=== PATIENT | male | born 1940 | race Caucasian/White ===

== ENCOUNTER 2024-04-30 05:53 | Inpatient (IN) | payer MEDICARE, OTHER, SELFPAY ==
[2024-04-25 09:13] VITALS: BMI 31.3
[2024-04-25 10:03] LABS: INR 0.93; PT 12.5 Sec (11.4-14.6)
[2024-04-25 10:04] LABS: % Basophils 0.6 % (0-2); % Immature Granulocytes 0.4 % (0-0.5); % Lymphocytes 15.5 % (20.5-51.1); % Neutrophils 71.5 % (42.2-75.2); APTT 29.1 Sec (23.4-35.0); Absolute Basophils 0.1 10^3/uL (0-0.2); Absolute Eosinophils 0.4 10^3/uL (0-0.7); Absolute Lymphocytes 1.5 10^3/uL (1.2-3.4); Absolute Monocytes 0.8 10^3/uL (0.1-0.6); Absolute Neutrophils 6.7 10^3/uL (1.4-6.5); Hematocrit 40.6 % (39.0-52.0); Hemoglobin 13.9 g/dL (13.0-18.0); Mean Corp Hgb Conc. 34.2 g/dL (33.0-37.0); Mean Corpuscular Hgb 29.7 pg (27.0-31.0); Mean Corpuscular Volume 86.8 fL (80.0-94.0); Mean Platelet Volume 10.4 fL (7.4-10.4); Nucleated Red Blood Cells % 0 % (-); Platelet Count 218 10^3/uL (130-400); Red Blood Cell Count 4.68 10^6/uL (4.70-6.10); Red Cell Dist. Width 12.6 % (11.5-14.5); White Blood Cell Count 9.4 10^3/uL (4.8-10.8)
[2024-04-25 11:58] LABS: Blood Urea Nitrogen 17 mg/dl (9-20); Calcium 9.7 mg/dl (8.4-10.2); Carbon Dioxide 27 mmol/L (22-30); Chloride 98 mmol/L (98-107); Estimated Creatinine Clearance 63 ml/min; Glucose 165 mg/dl (70-99); Potassium 5.4 mmol/L (3.5-5.1); Sodium 135 mmol/L (135-145); eGFR > 60.00
--- NOTE | 2024-04-27 07:52 | PTCARENOTE ---
Dianne at MD office notified of Lab results.
[2024-04-30] VITALS (12 sets, daily range): BP systolic 138–168; BP diastolic 57–106
[2024-04-30 07:01] LABS: Glucose - Point of Care 175 mg/dl (70-99)
[2024-04-30] MEDS: PERIDEX 0.12% ORAL RINSE 15 ML PO (07:03)
[2024-04-30] MEDS: NSS 500 IV (07:03)
[2024-04-30] MEDS: BACTROBAN NASAL 1 GRAM NASAL (07:03)
--- NOTE | 2024-04-30 07:43 | W.SUR.PREOP ---
Pre-Operative Surgical Note
-
I have examined this patient prior to the performance of the scheduled procedure.
The patient's condition is unchanged from the time of the current History and
Physical and the patient is able to undergo the scheduled procedure.
[2024-04-30 09:03] LABS: ACT-LR - POC 306 Seconds (116-155)
[2024-04-30 09:46] LABS: ACT-LR - POC 240 Seconds (116-155)
--- NOTE | 2024-04-30 10:31 | OR.RPT ---
Operative Report
Operative Report
Date of Operation: 04/30/2024
Pre Op Diagnosis: High-grade asymptomatic right carotid artery stenosis
Post Op Diagnosis: High-grade asymptomatic right carotid artery stenosis
Procedure: RIGHT carotid endarterectomy with patch angioplasty using bovine pericardium
Surgeon: Luis F Wang III, MD
Line Fixer: Christiano Hernandez MD PhD PGY-6
Anesthesia: General
Complications: None
History and Indications for Procedure: 83-year-old male with asymptomatic high-grade right carotid artery stenosis.
Procedure in Detail: Alex Diaz was correctly identified and placed supine on the operating table. After adequate induction of anesthesia the right neck was positioned, prepped and draped in the usual sterile fashion. Preoperative antibiotics
were administered. A timeout procedure was performed with the nursing and anesthesia staff confirming the patients identity as well as the nature and laterality of the procedure.
The carotid bifurcation was marked with ultrasound at the beginning of the case. The incision was planned accordingly. An incision was made along the anterior border of the right sternocleidomastoid muscle. Electrocautery was used to divide the
subcutaneous tissue and platysma. The carotid sheath was entered with sharp dissection. The internal jugular vein was retracted laterally. The vagus nerve was identified and protected throughout the case. The common carotid artery was identified at
the base of this incision and carefully encircled with a vessel loop. The patient was systemically heparinized. The dissection was continued distally towards the carotid bifurcation. The facial vein was skeletonized, ligated and divided between ties
and clips. The proximal external carotid artery was encircled with a vessel loop. The distal internal carotid artery was encircled with a vessel loop at a soft spot on the artery beyond the plaque.
The internal vessel loop was secured followed by the common and external. An arteriotomy was made on the distal common carotid artery with an 11-blade. This was extended proximally and distally with Zamudio scissors. The arteriotomy was extended
distally through the plaque to an area of normal appearing internal carotid artery. The distal vessel loop was replaced with a short tip hockey-stick type vascular clamp. An endarterectomy was performed with a [place] elevator in the standard
fashion. The proximal extent of the plaque was transected with scissors. The distal end of the plaque in the internal carotid artery feathered very nicely with a slight posterior intimal flap. The posterior flap was tacked down with a single
interrupted 7-0 Prolene suture. The plaque extending into the external carotid artery was everted. Once the plaque was fully removed the endarterectomy plane was irrigated with heparinized saline and any loose fronds of tissue were removed. A
pre-cut piece of bovine pericardium was sewn in place using a running 6-0 Prolene suture. Prior to the completion of the patch the common carotid was allowed to forward bleed and the external was allowed to back bleed. The area under the patch was
irrigated with heparinized saline to remove any potential thrombus or debris. The anastomosis was completed.
The external vessel loop was released first, followed by the common and then the internal. There was an excellent pulse in the distal internal carotid artery. An excellent quality Doppler signal in the distal internal carotid artery was also
confirmed. The patch suture line was closely inspected for hemostasis and was achieved. Protamine was administered. Hemostasis was achieved in the wound bed. The wound was irrigated with saline solution.
The wound was then closed in layers. Sterile dressings were applied. The patient awoke from anesthesia with no immediate neuro deficits and was taken to the PACU in stable condition.
Attestation: I was present and responsible for the entire procedure
Signed:
Luis F Wang III, MD
[facility] Vascular Surgery
[phone] (cell)
[2024-04-30 10:43] LABS: Glucose - Point of Care 218 mg/dl (70-99)
[2024-04-30 10:48] LABS: Hematocrit 34.9 % (39.0-52.0); Hemoglobin 12.3 g/dL (13.0-18.0); Mean Corp Hgb Conc. 35.2 g/dL (33.0-37.0); Mean Corpuscular Hgb 29.6 pg (27.0-31.0); Mean Corpuscular Volume 84.1 fL (80.0-94.0); Mean Platelet Volume 10.1 fL (7.4-10.4); Platelet Count 218 10^3/uL (130-400); Red Blood Cell Count 4.15 10^6/uL (4.70-6.10); Red Cell Dist. Width 12.6 % (11.5-14.5); White Blood Cell Count 13.8 10^3/uL (4.8-10.8)
[2024-04-30] MEDS: DILAUDID 0.25 MG IV (10:57)
[2024-04-30] MEDS: NSS 1000 IV ×2 (10:59→23:10)
[2024-04-30] MEDS: NOVOLOG vial 2 UNITS SC (11:01)
[2024-04-30 11:04] LABS: Blood Urea Nitrogen 14 mg/dl (9-20); Calcium 8.5 mg/dl (8.4-10.2); Carbon Dioxide 26 mmol/L (22-30); Chloride 102 mmol/L (98-107); Estimated Creatinine Clearance 79 ml/min; Glucose 229 mg/dl (70-99); Potassium 4.9 mmol/L (3.5-5.1); Sodium 137 mmol/L (135-145); eGFR > 60.00
[2024-04-30] MEDS: ZESTRIL 5 MG PO (11:46)
[2024-04-30] MEDS: TOPROL XL 50 MG PO (11:46)
--- NOTE | 2024-04-30 12:16 | W.PN.INTV ---
Today's Communication / Plan
Recommendations
-
Assessment
-
Assessment: Patient is an 83 male with a past medical history of hypertension, hypercholesterolemia, and type 2 diabetes who is presenting to the ICU following an elective right carotid endarterectomy with patch angioplasty using bovine pericardium.
The right carotid endarterectomy was performed by Luis F Wang MD at [facility] vascular surgery. Procedure went as planned and excellent pulse in the distal internal carotid artery was detected prior to wound closure. Sterile dressings
were applied and the patient awoke from anesthesia and no immediate neurological deficits were detected. Following completion of the surgery the patient was taken to the ICU in stable condition. Patient's blood pressure on arrival to the ICU was
152/64 pulse was 76, respiration 13, temperature 97.7, and oxygen saturation at 97% on room air.
Chronic Conditions: Hypertension, hypercholesterolemia, type 2 diabetes, hypothyroidism
Impression:
# S/p right carotid endarterectomy
# Hyperlipidemia
# Diabetes type 2
# Hypertension
# Hypothyroidism
Plan:
-Postoperative surgical intensive care unit monitoring
-Supplemental oxygen as needed
-Incentive Spirometry
-Aspiration precautions
-Nebulizers if needed�currently not bronchospastic
-Chest x-ray from 04/25/2024 showed no acute disease of the chest
-Neuro and vascular checks as per protocol
-Monitor blood pressure.
-Allow for mild permissive hypertension
-Blood pressure stable on Cardene drip - Target SBP <140
-Patient currently hyperglycemic. Insulin sliding scale started. Target glucose between 140-180.
-Follow hemoglobin
-Monitor wound healing and keep area clean to avoid risk of infection
-Continue home medications
-Consider discharge once patient is medically stable and has reached maximal benefit from his hospital stay.
-DVT Prophylaxis: Heparin
-1800-calorie diabetic diet
-Early mobilization
Data:
CXR 2 Views 04/25/24: No acute disease of the chest
Subjective Dataa
Subjective Data
Date of Service:
Date of Service: April 30, 2024
Objective Data
Data Reviewed
Vital Signs / I&O / Oxygen:
Vital Signs
Temp Pulse Resp BP Pulse Ox
97.0 F 76 13 152/64 97
04/30/24 11:27 04/30/24 11:46 04/30/24 11:45 04/30/24 11:46 04/30/24 11:45
Intake and Output
04/29/24 04/30/24 05/01/24
06:59 06:59 06:59
Intake Total 170 / 170
Balance 170 / 170
SaO2 97
Nasal Cannula flow liters per 4
minute
Labs/Micro/Reports
Lab Data
04/30/24 10:38
04/30/24 10:38
--- NOTE | 2024-04-30 12:36 | PTCARENOTE ---
arrived from PACU via bed, settled in room, questions reviewed, admission completed prior to arrival. neuro exam performed with PACU staff, given ice chips. denies urge to void. ice pack to R neck. art line zero and bi.
[2024-04-30] MEDS: CARDENE 200 IV (13:16)
[2024-04-30 13:33] LABS: Glucose - Point of Care 221 mg/dl (70-99)
[2024-04-30] MEDS: NOVOLOG FLEXPEN-LOW RESISTANCE 2 UNITS SC (13:37)
--- NOTE | 2024-04-30 14:42 | PTCARENOTE ---
cardene infusion on briefly, 25 min, for parameters ordered. infusions stopped when sys BP into the 130s and BP remains in that range, 130-140. attempted room air, desatting into 85 range, oxygen reapplied. ate lunch. presently resting unless
disturbed, no neuro change, R neck glue remains intact with minimal bruising. call gonzalez in reach.
[2024-04-30 17:09] LABS: Glucose - Point of Care 280 mg/dl (70-99)
[2024-04-30] MEDS: GLUCOPHAGE 850 MG PO (17:28)
[2024-04-30] MEDS: NOVOLOG FLEXPEN-LOW RESISTANCE 3 UNITS SC (17:28)
--- NOTE | 2024-04-30 18:31 | PTCARENOTE ---
ate dinner, neuro exam unchanged. BP is labile at times, elevates with activity, within range 130-140 sys when resting.
--- NOTE | 2024-04-30 20:00 | PTCARENOTE ---
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 c/o 3/10 R neck incision pain- prn tylenol and ice pk given. POC discussed, call carlos w/pt.
[2024-04-30] MEDS: TYLENOL 650 MG PO (20:10)
[2024-04-30] MEDS: HEPARIN 5000 UNITS SC (20:10)
[2024-04-30] MEDS: ROXICODONE 5 MG PO (23:13)
[2024-05-01 03:49] LABS: Hematocrit 32.4 % (39.0-52.0); Hemoglobin 11.6 g/dL (13.0-18.0); Mean Corp Hgb Conc. 35.8 g/dL (33.0-37.0); Mean Corpuscular Hgb 29.7 pg (27.0-31.0); Mean Corpuscular Volume 82.9 fL (80.0-94.0); Mean Platelet Volume 10.4 fL (7.4-10.4); Platelet Count 223 10^3/uL (130-400); Red Blood Cell Count 3.91 10^6/uL (4.70-6.10); Red Cell Dist. Width 12.5 % (11.5-14.5); White Blood Cell Count 14.3 10^3/uL (4.8-10.8)
[2024-05-01 03:52] LABS: INR 1.02; PT 13.3 Sec (11.4-14.6)
[2024-05-01 03:53] LABS: APTT 31.1 Sec (23.4-35.0)
[2024-05-01 04:07] LABS: Blood Urea Nitrogen 13 mg/dl (9-20); Calcium 8.7 mg/dl (8.4-10.2); Carbon Dioxide 26 mmol/L (22-30); Chloride 105 mmol/L (98-107); Estimated Creatinine Clearance 90 ml/min; Glucose 161 mg/dl (70-99); Magnesium 1.9 mg/dl (1.6-2.3); Potassium 4.4 mmol/L (3.5-5.1); Sodium 139 mmol/L (135-145); eGFR > 60.00
[2024-05-01 04:12] VITALS: BMI 31.3
--- NOTE | 2024-05-01 04:17 | PTCARENOTE ---
pt L rad AL BP intermittently elevated with care/when using urinal, now sustaining SBP >165- cardene gtt started per work list doc. no further changes in assessment.
[2024-05-01] MEDS: SYNTHROID 25 MCG PO (06:30)
[2024-05-01] MEDS: ROXICODONE 5 MG PO (06:32)
--- NOTE | 2024-05-01 07:00 | PTCARENOTE ---
Received patient from hourly shift. patient AAOx3, neurochecks WNL remain unchanged since prior assessment. denies any numbness tingling. Patient is on 2L nasal cannula, sinus rhythm on monitor. Left radial Leigh zero'ed to atmospheric pressure
and leveled at phlebostatic axis. Cardene gtt at 5mg, weaned off. PO BP meds given. Patient did request to hold metformin as he states it gives him uncontrolled BMs. Right neck incision approximated and ecchymotic. Skin glue. Abdomen is
distended, patient is using urinal at bedside, patient is ordered breakfast. Will review orders, plan for potential discharge home.
[2024-05-01 07:47] LABS: Glucose - Point of Care 169 mg/dl (70-99)
[2024-05-01] MEDS: TOPROL XL 50 MG PO (07:55)
[2024-05-01] MEDS: LIPITOR 80 MG PO (07:55)
[2024-05-01] MEDS: ZESTRIL 5 MG PO (07:55)
[2024-05-01] MEDS: PRANDIN 2 MG PO (07:55)
[2024-05-01] MEDS: LOW STRENGTH ASPIRIN 81 MG PO (07:55)
[2024-05-01] MEDS: LASIX 20 MG PO (07:55)
[2024-05-01] MEDS: NOVOLOG FLEXPEN-MODERATE RESISTANCE 1 UNITS SC (07:56)
[2024-05-01] MEDS: HEPARIN 5000 UNITS SC (07:56)
[2024-05-01] MEDS: GLUCOPHAGE PO (07:57)
--- NOTE | 2024-05-01 08:00 | W.PN.VS ---
Today's Communication / Plan
-
See below.
Assessment/Plan
-
Assessment: 83-year-old male POD #1 right carotid endarterectomy
Plan:
Discontinue arterial line once Cardene infusion weaned off
Discontinue IV fluids
Out of bed to chair with progression to ambulation as tolerated
Continue antiplatelet and statin therapy
Likely discharge later this afternoon
Subjective Data
-
Date of Service: May 01, 2024
Patient seen and examined at bedside, offers no complaints reports resolution of headache since yesterday. Denies nausea, vomiting, fever, and chills. Denies unilateral weakness, vision changes, dysarthria, or dysphagia.
Objective Data
-
Vital Signs
Temp Pulse Resp BP Pulse Ox
98.2 F 76 15 151/106 96
05/01/24 11:15 05/01/24 09:30 05/01/24 09:30 05/01/24 09:07 05/01/24 09:30
Intake and Output
04/30/24 05/01/24 05/02/24
06:59 06:59 06:59
Intake Total 1820 / 1925 185 / 185
Output Total 3200 / 3600 400 / 400
Balance -1380 / -1675 -215 / -215
Intake:
Oral fluids 150 / 150
IV fluids (Total) 1670 / 1775 185 / 185
Nss 1,000 ml @ 80 mls/hr IV . 1520 / 1600 160 / 160
[id number] ZACKARY Rx#:[id number]
cardene
nss 140 / 140
Output:
Urine, Voided 3200 / 3600 400 / 400
Lab Results
05/01/24 03:17
05/01/24 03:17
Calcium 8.7 mg/dl (8.4-10.2) 05/01/24 03:17
Magnesium 1.9 mg/dl (1.6-2.3) 05/01/24 03:17
Physical Exam
-
AAOx3, no apparent distress, resting in bed comfortably
Facial symmetry, tongue midline, right neck surgical incision CDI, no evidence of hematoma or edema
No tachycardia
No dyspnea on room air
ABD flat, nondistended
Bilateral lower extremities without edema
--- NOTE | 2024-05-01 08:14 | W.PN.INTV ---
Today's Communication / Plan
Recommendations
Moving forward with discharge planning following the removal of arterial line and PT/OT assessment.
Assessment
-
Assessment: Patient is an 83 male with a past medical history of hypertension, hypercholesterolemia, and type 2 diabetes who is presenting to the ICU following an elective right carotid endarterectomy with patch angioplasty using bovine pericardium.
The right carotid endarterectomy was performed by Luis F Wang MD at [facility] vascular surgery. Procedure went as planned and excellent pulse in the distal internal carotid artery was detected prior to wound closure. Sterile dressings
were applied and the patient awoke from anesthesia and no immediate neurological deficits were detected. Following completion of the surgery the patient was taken to the ICU in stable condition. Patient's blood pressure on arrival to the ICU was
152/64 pulse was 76, respiration 13, temperature 97.7, and oxygen saturation at 97% on room air.
Chronic Conditions: Hypertension, hypercholesterolemia, type 2 diabetes, hypothyroidism
Impression:
# S/p right carotid endarterectomy
# Hyperlipidemia
# Diabetes type 2
# Hypertension
# Hypothyroidism
Plan:
-Underwent carotid endarterectomy on 04/30/2024 without complications.
-Postoperative surgical intensive care unit monitoring
-Incision is intact without hematoma. No stridor on exam.
-Supplemental oxygen as needed
-Incentive Spirometry
-Aspiration precautions
-Nebulizers if needed�currently not bronchospastic
-Chest x-ray from 04/25/2024 showed no acute disease of the chest
-Neuro and vascular checks as per protocol
-Neurologically intact
-Monitor blood pressure.
-Allow for mild permissive hypertension
-Blood pressure stable - arterial line out
-Hemodynamically stable in the ICU. Continue hemodynamic monitoring. Move forward with discharge planning
-Patient glucose at 161 on 05/01. Insulin sliding scale. Target glucose between 140-180.
-Follow hemoglobin
-Monitor wound healing and keep area clean to avoid risk of infection
-Continue home medications
-Discharge once patient is hemodynamically stable after removal of arterial line and has reached maximal benefit from his hospital stay.
-DVT Prophylaxis: Heparin
-1800-calorie diabetic diet
-Increase activity as able
Data:
CXR 2 Views 04/25/24: No acute disease of the chest
Subjective Dataa
Subjective Data
Date of Service:
Date of Service: May 01, 2024
Patient continues to recover and offers no new complaints except for displeasure with the quality of the hospital's soup.
Objective Data
Data Reviewed
Vital Signs / I&O / Oxygen:
Vital Signs
Temp Pulse Resp BP Pulse Ox
97.6 F 73 17 136/53 94
05/01/24 08:04 05/01/24 06:30 05/01/24 06:30 05/01/24 07:55 05/01/24 06:30
Intake and Output
04/30/24 05/01/24 05/02/24
06:59 06:59 06:59
Intake Total 1820 / 1925 185 / 185
Output Total 3200 / 3600 400 / 400
Balance -1380 / -1675 -215 / -215
SaO2 94
Nasal Cannula flow liters per 2
minute
Physical Exam
General: Comfortable
HEENT: Normocephalic and Anicteric
Cardiovascular: Regular Rhythm
Respiratory: Clear
GI: Soft, Non Distended, Non Tender and Normal Bowel Sounds
Neurology: Awake, Alert and Oriented
Labs/Micro/Reports
Lab Data
05/01/24 03:17
05/01/24 03:17
Laboratory Results
05/01/24
03:17
PT 13.3
INR 1.02
APTT 31.1
[2024-05-01 08:23] VITALS: BP 127/90
--- NOTE | 2024-05-01 08:50 | PTCARENOTE ---
Left radial [place] discontinued, patient OOB to chair.
[2024-05-01 09:07] VITALS: BP 151/106
[2024-05-01 10:00] VITALS: BP 122/56
--- NOTE | 2024-05-01 10:23 | CM ---
CM following re: discharge planning.
Discussed in Rounds, reviewed pt's chart, met with pt.
Pt is an 83 year old male, admitted with primary dx of POD#1 S/p right carotid endarterectomy.
Pt reports he lives with spouse in a [address] in [place], 2 steps to enter, has supportive daughter. Pt described himself as independent in al areas [employer], drives. No DME, VN or SNF history. Pt stated he is aware he will be discharged home today,
expressed his agreement and he stated his spouse is coming to transport him home. IMM reviewed, placed on chart, pt has a copy.
PCP: Jaqueline sharpe
Pharmacy: [facility] [place]
D/C plan: home no needs. Spouse to transport.
No discharge needs identified at this time.
[2024-05-01 11:10] VITALS: BP 127/63
[2024-05-01 12:00] VITALS: BP 121/75
[2024-05-01 12:19] LABS: Glucose - Point of Care 222 mg/dl (70-99)
--- NOTE | 2024-05-01 12:19 | PTCARENOTE ---
No change in patient's assessment. patient ambulated hallway, awaiting discharge from vascular group
[2024-05-01] MEDS: NOVOLOG FLEXPEN-MODERATE RESISTANCE 3 UNITS SC (12:34)
--- NOTE | 2024-05-01 12:37 | W.DS.TRANS ---
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
-
Discharge Instructions:
Discharge Diagnosis/Procedures Right carotid endarterectomy
Diet As tolerated
Activity No strenuous activity
Driving Restrictions Not until seen by your Dr
Bathing Restrictions OK to Shower
Instructions:
Stand-Alone Forms: DC Instr - Vascular OR
Changes to Home Medications: No
Discharge Medications:
DC Medications w/original date entered in [facility]
aspirin 81 mg capsule 81 mg PO DAILY Blood Clot Prevention/Tx 04/23/24
atorvastatin 80 mg tablet 80 mg PO DAILY High Cholesterol 04/23/24
furosemide 20 mg tablet (Lasix) 20 mg PO DAILY Fluid Retention/Swelling 04/23/24
levothyroxine 25 mcg tablet 25 mcg PO DAILY Thyroid 04/23/24
lisinopril 5 mg tablet 5 mg PO DAILY Blood Pressure 04/23/24
metformin 850 mg tablet 850 mg PO BID Diabetes 04/23/24
metoprolol succinate 50 mg tablet,extended release 24 hr 50 mg PO DAILY Heart Disease/Condition 04/23/24
repaglinide 2 mg tablet 2 mg PO DAILY Diabetes 04/23/24
Home Medication Changes
Pending Results: No
== END 2024-05-01 13:25 | disposition home or self-care (01) | DRG 39 ==
LOC: ICU 05:53
PROVIDERS: Nurse Practitioner; ADMITTING PHYSICIAN Surgery Vascular Surgery; FAMILY PHYSICIAN Internal Medicine
PROC: 03UH0KZ Supplement Right Common Carotid Artery with Nonautologous Tissue Substitute, Open Approach (ICD-10-PCS; 2024-04-30)
PROC: 03CH0ZZ Extirpation of Matter from Right Common Carotid Artery, Open Approach (ICD-10-PCS; 2024-04-30)
PROC: 03CK0ZZ Extirpation of Matter from Right Internal Carotid Artery, Open Approach (ICD-10-PCS; 2024-04-30)
PROC: 03CM0ZZ Extirpation of Matter from Right External Carotid Artery, Open Approach (ICD-10-PCS; 2024-04-30)
DX: I65.21 Occlusion and stenosis of right carotid artery (principal)
CPT/HCPCS: 88304; 88311; 35301; 36415; 71046; 80048; 82962; 83735; 85025; 85027; 85610; 85730; 86850; 86900; 86901; 87070; 95938; 95941; 95955